=== PATIENT | male | born 1990 | race Caucasian/White ===

== ENCOUNTER 2025-04-24 08:05 | Emergency (ER) | payer OTHER ==
[~2025-04-24] VITALS: Ht 188 cm; Wt 163.3 kg
[2025-04-24] MEDS ORDERED: VALA500 PO (08:38)
[2025-04-24] MEDS ORDERED: Artificial Tear15 ML RIGHTEYE (08:38)
[2025-04-24] MEDS ORDERED: PRED20 PO (08:38)
[2025-04-24 08:51] VITALS: BP 155/99
== END 2025-04-24 09:03 | disposition home or self-care (01) ==
LOC: ER 08:05
DX: G51.0 Bell's palsy (principal); F17.290 Nicotine dependence, other tobacco product, uncomplicated
CPT/HCPCS: 93005; 93010; 99284-25; A9270; J7512